=== PATIENT | male | born 1995 | race Caucasian/White ===

== ENCOUNTER 2018-03-07 08:41 | Emergency (ER) | payer SELFPAY ==
[2018-03-07] MEDS ORDERED: PROPARACAINE HCL OPTH 15ML BTL OPTH ONE (09:00)
--- NOTE | 2018-03-07 09:06 | Emergency Department Record ---
History of Present Illness - General Chief complaint: Eye Problem Stated complaint: CLEANING SOLUTION IN EYE Time Seen by Provider: 03/07/18 08:55 Source: Patient Mode of Arrival: Ambulatory Limitations: No limitations - History of Present Illness Initial comments: The patient accidentally splashed Xylene into both eyes at work about 40 minutes ago. He flushed his eyes for a good 20 minutes. Presently he only has very mild irritation to the R eye and the L eye feels normal. He denies any eye pain or visual changes. chief complaint: Other Onset/Timin -: Minutes(s) Onset Description: Sudden Location: Both eyes Place: Work If Injury: Chemical exposure Eye Symptoms: Burning If Pain, Quality: Aching Consistency: Constant Context: Trauma Treatments Prior to Arrival: Irrigated eye - Related Data Visual acuity (L) = 20/: 40 Visual acuity (R) = 20/: 40 With correction: No Previous Rx's Medication Instructions Recorded Erythromycin Base [Erythromycin 1 apply AFFEYE QID #1 tube 03/07/18 OPTH Ointment] Allergies Allergy/AdvReac Type Severity Reaction Status Date / Time No Known Drug Allergies Allergy Verified 03/07/18 08:57 Travel Screening - Travel/Exposure Within Last 30 Days Have you traveled within the last 30 days?: No - Travel/Exposure Within Last Year Have you traveled outside the [place] in the last year?: No - Additonal Travel Details Have you been exposed to anyone with a communicable illness?: No Review of Systems Constitutional: Denies: Chills, Fever Eyes: Denies: Eye discharge ENT: Denies: Congestion Respiratory: Denies: Cough, Dyspnea Past Medical History - SOCIAL HISTORY Smoking Status: Never smoker Alcohol Use: Rare Drug Use: None - RESPIRATORY Hx Respiratory Disorders: Yes Hx Bronchitis: Yes - CARDIOVASCULAR Hx Cardio Disorders: No - NEURO Hx Neuro Disorders: No - GI Hx GI Disorders: Yes Hx Reflux: Yes - Hx Genitourinary Disorders: No - ENDOCRINE Hx Endocrine Disorders: No - MUSCULOSKELETAL Hx Musculoskeletal Disorders: No - PSYCH Hx Psych Problems: No - HEMATOLOGY/ONCOLOGY Hx Hematology/Oncology Disorders: No Family Medical History Any Significant Family History?: No Hx Dementia: Grandparents Hx HTN: Father Physical Exam - General General Appearance: Alert, Oriented x3, Cooperative, No acute distress - Head Head exam: Atraumatic, Normocephalic, Normal inspection - Eye Eye exam: PERRL, Conjunctival injection (mild R>L.), EOMI. negative: Normal appearance, Nystagmus, Periorbital swelling, Periorbital tenderness Pupils: negative: Irregular Visual acuity (L) = 20/: 40 Visual acuity (R) = 20/: 40 With correction: No - ENT Throat exam: Normal inspection. negative: Tonsillar erythema, Tonsillar exudate - Neck Neck exam: Normal inspection, Full ROM. negative: Tenderness Course Vital Signs 03/07/18 08:48 Temperature 98.6 F Pulse Rate 94 H Respiratory 16 Rate Blood Pressure 136/94 Pulse Ox 96 - Reevaluation(s) Reevaluation #1: I did stain both of the patient's eyes and they were neg for corneal abrasions. I explained to the patient that the Xylene only causes eye irritation and the fact that he washed out both eyes so well was very good. He has no irritation now and no signs of any injury. 03/07/18 09:13 Disposition Disposition: Discharge Clinical Impression: Irritation of both eyes Disposition: Home, Self-Care Condition: (2) Stable Instructions: Chemical Eye Matthew (ED) Additional Instructions: Please use the Emycin ointment as directed. Please see your eye doctor if not better in 2 days and return to the ER for any worsening symptoms. Prescriptions: Erythromycin Base [Erythromycin OPTH Ointment] 1 apply AFFJFE QID #1 tube Forms: Patient Portal Access Time of Disposition: 09:17 Quality - Quality Measures Quality Measures: N/A - Blood Pressure Screening View Details: Yes Does Patient Have Any of the Following: No Blood Pressure Classification: Hypertensive Reading Systolic Measurement: 136 Diastolic Measurement: 94 Screening for High Blood Pressure: < First Hypertensive BP, F/U Documented > [ [id number]] First Hypertensive Follow-up Interventions: Referral to alternative/primary care provider.
== END 2018-03-07 09:44 | disposition home or self-care (01) ==
LOC: ER 08:41
DX: T52.2X1A Toxic effect of homologues of benzene, accidental (unintentional), initial encounter (principal); H57.8 Other specified disorders of eye and adnexa; Y92.63 Factory as the place of occurrence of the external cause; Y99.0 Civilian activity done for income or pay
CPT/HCPCS: 99282